=== PATIENT | female | born 2000 | race Caucasian/White ===

== ENCOUNTER 2019-03-25 14:21 | Emergency (ER) | payer MEDICAID ==
[~2019-03-25] VITALS: Ht 165.1 cm; Wt 71.7 kg
[2019-03-25 15:12] VITALS: BP 125/64
--- NOTE | 2019-03-25 15:29 | NUR ---
FIRST FEW ATTEMPTS TO TAKE B/P---READ AND TOOK NEXT AVAILABLE REINIERERDEYANIRA AND PLACED IV WITH NS BOLUS---MD NOTIFIED
[2019-03-25] MEDS ORDERED: NACL 0.9% 1,000 ML IV ONE ×2 (15:35→17:25)
--- NOTE | 2019-03-25 15:38 | NUR ---
C/O REPEATED N/V/D X TODAY ---FATIGUE, GENERALIZED WEAKNESS, BODYACHES VOMITUS GREEN BILE PER PATIENT. DIARRHEA IS CLEAR WATERY. DIARRHEA AND VOMIT 10+ THROUGHOUT THE NIGHT. ATE CHERISE'S LAST NIGHT AND FAMILY MEMBER STATED SAME SYMPTOMS. VSS. IV BOLUS INFUSING. C/O 04/12 GENERALIZED PAIN. GCS15. HX--DENIES RX---NONE
[2019-03-25] MEDS ORDERED: ONDANSETRON 4 MG/2 ML VIAL IVP ONE (15:50)
[2019-03-25] MEDS ORDERED: KETOROLAC 30 MG/ML VIAL IVP ONE ×2 (16:10→17:35)
[2019-03-25] MEDS ORDERED: DICYCLOMINE 20 MG/2 ML VIAL IM ONE (16:10)
[2019-03-25 16:14] LABS: EOSINOPHILS # (AUTO) 0.1 K/uL (0-0.4); LYMPHOCYTES # (AUTO) 0.5 K/uL (2.5-16.5)
[2019-03-25 16:19] LABS: BASOPHILS % (AUTO) 0.2 % (0.0-2.0); EOSINOPHILS % (AUTO) 0.8 % (0.0-4.0); HEMATOCRIT 45.9 % (36-48); HEMOGLOBIN 14.9 g/dL (12.0-16.0); MEAN CORPUSCULAR HEMOGLOBIN 27 pg (27-31); MEAN CORPUSCULAR HGB CONC 33 g/dL (33-37); MEAN CORPUSCULAR VOLUME 83.4 fL (80-94); NEUTROPHILS # (AUTO) 11.3 K/uL (1.8-7.7); PLATELET COUNT (AUTO) 280 K/uL (140-450)
[2019-03-25 16:50] LABS: ALBUMIN 4.1 g/dL (3.4-5.0); ANION GAP 18.7 (8-16); CARBON DIOXIDE 20.9 mmol/L (21-32); CREATININE 0.8 mg/dL (0.6-1.3); POTASSIUM 3.6 mmol/L (3.5-5.1); TOTAL BILIRUBIN 0.8 mg/dL (0.0-1.0)
[2019-03-25 17:03] LABS: APPEARANCE,URINE CLEAR (CLEAR); BILIRUBIN,URINE NEGATIVE (NEGATIVE); BLOOD, URINE 1+ (NEGATIVE); COLOR,URINE AMBER (YELLOW); LEUKOCYTE ESTERASE ,URINE NEGATIVE (NEGATIVE); NITRITE, URINE NEGATIVE (NEGATIVE); UGLUCOSE NEGATIVE (NEGATIVE)
--- NOTE | 2019-03-25 17:12 | NUR ---
PT SLEEPING IN BED, NAD. VSS.
[2019-03-25 17:13] LABS: WBC,URINE 0-5 /HPF (0-5)
[2019-03-25 18:13] VITALS: BP 125/74
--- NOTE | 2019-03-25 18:14 | NUR ---
Patient discharged with v/s stable. Written and verbal after care instructions given and explained. Patient alert, oriented and verbalized understanding of instructions. Ambulatory with steady gait. All questions addressed prior to discharge. ID band removed. Patient advised to follow up with PMD. Rx of SANTINO GREEN given. Patient educated on indication of medication including possible reaction and side effects. Opportunity to ask questions provided and answered.
== END 2019-03-25 18:14 | disposition home or self-care (01) ==
LOC: MED 14:21
DX: R19.7 Diarrhea, unspecified (principal); R11.2 Nausea with vomiting, unspecified
CPT/HCPCS: 36415; 80053; 81001; 83690; 85025; 96361; 96374; 96375; 96376; 99283; J0500; J1885; J2405

== ENCOUNTER 2020-07-02 15:05 | Emergency (ER) | payer MEDICAID ==
[~2020-07-02] VITALS: Ht 172.7 cm; Wt 77.1 kg
[2020-07-02 15:10] VITALS: BP 142/79
--- NOTE | 2020-07-02 15:21 | NUR ---
C/O Anxiety/LOSS OF TASTE AND SMELL X2-3 DAYS, PT HAVING NAUSEA AND DRY COUGH WELL. SLIGHT SOB. PMH: HTN NKDA
[2020-07-02 15:53] VITALS: BP 142/79
--- NOTE | 2020-07-02 15:53 | NUR ---
Patient discharged with v/s stable. Written and verbal after care instructions given and explained. Patient alert, oriented and verbalized understanding of instructions. Ambulatory with steady gait. All questions addressed prior to discharge. ID band removed. Patient advised to follow up with PMD. Rx of ZOFRAN, VISTARIL, PROMETHAZINE, TYLENOL given. Patient educated on indication of medication including possible reaction and side effects. Opportunity to ask questions provided and answered.
--- NOTE | 2020-07-04 15:55 | NUR ---
+ covid result received from lab. Copy given to Infection control
== END 2020-07-02 15:53 | disposition home or self-care (01) ==
LOC: MED 15:05
DX: R05 Cough (principal); Z20.828 Contact with and (suspected) exposure to other viral communicable diseases; F41.9 Anxiety disorder, unspecified
CPT/HCPCS: 99283; U0003

== ENCOUNTER 2020-12-08 00:40 | Emergency (ER) | payer MEDICAID ==
[~2020-12-08] VITALS: Ht 170.2 cm; Wt 78.9 kg
[2020-12-08 00:46] VITALS: BP 140/83
--- NOTE | 2020-12-08 00:51 | NUR ---
PT AMBULATED TO BED #10
--- NOTE | 2020-12-08 01:00 | NUR ---
19 y/o female presented to ED c/o upper quadrant abdominal pain since 1999 last night. Pt states she has had a few episodes of vomitting. Pt abd flat, soft and tender to upper quadrant upon palpation. Pt denies fever, chills, chest pain and sob. Pt states she just feels a lot of pressure to her abd. Pt thinks she may have food posioning. Pt placed in gown, resting in bed,locked and in lowest position, HOB elevated , side rail x 1. VSS. No acute distress noted. pmh: denies NKA
[2020-12-08] MEDS ORDERED: ONDANSETRON 4 MG ODT PO ONE (01:15)
[2020-12-08] MEDS ORDERED: DICYCLOMINE HCL LIQUID 20 MG, ALUMINUM HYD/MAG/SIMETHICONE 30 ML, LIDOCAINE VISCOUS 2% ... PO ONE ×3 (01:15)
[2020-12-08] MEDS ORDERED: ACETAMINOPHEN 325 MG TAB PO ONE (01:15)
[2020-12-08] MEDS ORDERED: LIDOCAINE VISCOUS 2% 20 ML UDC ONE (01:19)
[2020-12-08] MEDS ORDERED: ALUMINUM HYD/MAG/SIMETHICONE 30 ML UDC ONE (01:19)
[2020-12-08] MEDS ORDERED: DICYCLOMINE HCL LIQUID 10 MG/5 ML UDC ONE (01:19)
--- NOTE | 2020-12-08 01:22 | NUR ---
Pt vomitted after administration of zofran odt - ERMD made aware.
[2020-12-08] MEDS ORDERED: NACL 0.9% 1,000 ML IV SCH (01:25)
[2020-12-08] MEDS ORDERED: KETOROLAC 30 MG/ML VIAL IVP ONE (01:25)
[2020-12-08] MEDS ORDERED: ONDANSETRON 4 MG/2 ML VIAL IVP ONE (01:25)
[2020-12-08] MEDS ORDERED: LORazepam 2 MG/ML VIAL IVP ONE (01:25)
--- NOTE | 2020-12-08 01:25 | NUR ---
ERMD at bedside for medical evaluation.
--- NOTE | 2020-12-08 01:27 | NUR ---
20 g IV placed in right wrist - blood labs collected from IV site and handed to Mee from lab.
[2020-12-08 01:36] LABS: BASOPHILS # (AUTO) 0.1 K/uL (0.00-0.22); BASOPHILS % (AUTO) 0.7 % (0.0-2.0); EOSINOPHILS % (AUTO) 0.4 % (0.0-4.0); HEMATOCRIT 39.9 % (36-48); HEMOGLOBIN 13.6 g/dL (12.0-16.0); LYMPHOCYTES # (AUTO) 1.1 K/uL (2.5-16.5); LYMPHOCYTES % (AUTO) 10.5 % (20.5-51.1); MEAN CORPUSCULAR HEMOGLOBIN 28 pg (27-31); MEAN CORPUSCULAR HGB CONC 34 g/dL (33-37); MEAN CORPUSCULAR VOLUME 80.9 fL (80-94); MONOCYTES # (AUTO) 0.4 K/uL (0.8-1.0); MONOCYTES % (AUTO) 3.6 % (1.7-9.3); NEUTROPHILS # (AUTO) 8.6 K/uL (1.8-7.7); NEUTROPHILS % (AUTO) 84.8 % (42.2-75.2); PLATELET COUNT (AUTO) 375 K/uL (140-450); RED BLOOD CELL COUNT(AUTO) 4.94 MIL/uL (4.20-5.40); RED CELL DISTRIBUTION WIDTH 12.9 % (11.6-13.7); WHITE BLOOD COUNT (AUTO) 10.2 K/uL (4.8-10.8)
--- NOTE | 2020-12-08 01:55 | NUR ---
COVERING PRIMARY LUNCH RN FOR LUNCH RELIEF--- O2 SAT DROPPED TO 86%. PT PLACED ON 2L O2 VIA NASAL CANNULA. O2 SAT IMPROVED TO 98%. WILL CONTINUE TO MONITOR.
[2020-12-08 02:08] LABS: ANION GAP 25.5 (8-16); CARBON DIOXIDE 18.9 mmol/L (21-32); CREATININE 0.8 mg/dL (0.6-1.3); POTASSIUM 3.4 mmol/L (3.5-5.1)
[2020-12-08 02:14] LABS: ALBUMIN 4.2 g/dL (3.4-5.0); TOTAL BILIRUBIN 0.5 mg/dL (0.0-1.0)
--- NOTE | 2020-12-08 02:30 | NUR ---
Pt refused tylenol medication - pt states pain is much better at this time. SHOD made aware.
--- NOTE | 2020-12-08 02:39 | NUR ---
Pt resting in bed, locked and in lowest position, HOB elevated , side rail x1. Pt took of NC , oxygen level 100%. Pt states she is feeling better , no abd pain w/ minimal nausea.
--- NOTE | 2020-12-08 02:56 | NUR ---
ERMD AT BEDSIDE FOR FURTHER MEDICAL EVALUATION.
[2020-12-08] MEDS ORDERED: ONDA-24 SL (03:01)
[2020-12-08] MEDS ORDERED: FAMO-90 PO (03:01)
[2020-12-08] MEDS ORDERED: CEPH-588 PO (03:01)
--- NOTE | 2020-12-08 03:10 | NUR ---
IV removed, catheter intact and site benign. Applied folded 4x4 gauze and tape to stop bleeding.
--- NOTE | 2020-12-08 03:12 | NUR ---
Pt states she has called her ride to pick her up and that they should be here soon.
[2020-12-08 03:14] VITALS: BP 123/65
--- NOTE | 2020-12-08 03:14 | NUR ---
Patient discharged with v/s stable. Written and verbal after care instructions given and explained. Patient alert, oriented and verbalized understanding of instructions. Ambulatory with steady gait. All questions addressed prior to discharge. ID band removed. Patient advised to follow up with PMD. Rx of Zofran, Pepcid & Keflex given. Patient educated on indication of medication including possible reaction and side effects. Opportunity to ask questions provided and answered.
== END 2020-12-08 03:14 | disposition home or self-care (01) ==
LOC: MED 00:40
DX: K29.70 Gastritis, unspecified, without bleeding (principal)
CPT/HCPCS: 36415; 76705; 80053; 81002; 81025; 83690; 85025; 96361; 96374; 96375; 99284; J1885; J2060; J2405; J7030; Q0162

== ENCOUNTER 2021-05-26 17:52 | Emergency (ER) | payer MEDICAID ==
[~2021-05-26] VITALS: Ht 170.2 cm; Wt 78.0 kg
[~2021-05-26 17:52] MED LIST: CEPH-588 PO; FAMO-90 PO; ONDA-188 SL
[2021-05-26 18:09] VITALS: BP 131/70
--- NOTE | 2021-05-26 18:28 | NUR ---
URINE SPECIMEN IN [facility]
--- NOTE | 2021-05-26 21:18 | NUR ---
PT AMBULATED TO BED #1
--- NOTE | 2021-05-26 21:45 | NUR ---
PT C/O OF SORE THROAT AND CONGESTION X 3 DAYS. PT STATES SHE SAW A WHITE STONE IN THE BACK OF HER THROAT. PT DENIES N/V/D. MEDICAL HX: GASTRITIS NKA MEDICATIONS: NON
[2021-05-26 22:44] LABS: APPEARANCE,URINE SL CLOUDY (CLEAR); BILIRUBIN,URINE 1+ (NEGATIVE); BLOOD, URINE 1+ (NEGATIVE); COLOR,URINE DARK YELLOW (YELLOW); LEUKOCYTE ESTERASE ,URINE NEGATIVE (NEGATIVE); NITRITE, URINE NEGATIVE (NEGATIVE); PH,URINE 6.5 (5.0-9.0); UGLUCOSE TRACE (NEGATIVE)
[2021-05-26 22:48] LABS: WBC,URINE 0-5 /HPF (0-5)
[2021-05-26] MEDS ORDERED: CEPH-588 PO (22:57)
[2021-05-26 23:21] VITALS: BP 141/87
--- NOTE | 2021-05-26 23:29 | NUR ---
The patient's care was reviewed and supervised by Susan White RN.
== END 2021-05-26 23:20 | disposition home or self-care (01) ==
LOC: MED 17:52
DX: O23.41 Unspecified infection of urinary tract in pregnancy, first trimester (principal); Z20.822 Contact with and (suspected) exposure to COVID-19; O26.891 Other specified pregnancy related conditions, first trimester; J35.8 Other chronic diseases of tonsils and adenoids; Z3A.01 Less than 8 weeks gestation of pregnancy; Z79.899 Other long term (current) drug therapy
CPT/HCPCS: 81001; 81025; 87081; 87086; 87804; 99285

== ENCOUNTER 2021-07-13 03:10 | Emergency (ER) | payer MEDICAID ==
[~2021-07-13] VITALS: Ht 170.2 cm; Wt 79.4 kg
[2021-07-13 03:19] VITALS: BP 138/70
--- NOTE | 2021-07-13 03:19 | NUR ---
20 YO/O FEMALE BIB SELF FOR 8/10 PAIN IN RIGHT ABDOMEN RADIATING TO HER BACK. DESCRIBED PRESSURE X1 DAY. +N/V SINCE YESTERDAY NIGHT. PT STATES HER BACK WAS "LOCKING UP." 15 WEEKS ; LMP 03/29. SARAI 01/04. . SLIGHTLY DIZZY. DENIES DIARRHEA. UNLABORED BREATHING, A/OX4, REGULAR HEART RATE. HX: GASTRITIS, RECENT UTI NKA
--- NOTE | 2021-07-13 03:41 | NUR ---
Dr. Huang examining patient.
[2021-07-13] MEDS ORDERED: ACETAMINOPHEN EXTRA STRENGTH 500 MG TAB PO ONE (03:50)
[2021-07-13] MEDS ORDERED: NACL 0.9% 1,000 ML IV SCH (03:50)
[2021-07-13] MEDS ORDERED: ONDANSETRON 4 MG/2 ML VIAL IVP ONE (03:50)
--- NOTE | 2021-07-13 04:17 | NUR ---
PT TAKEN TO ULTRASOUND
[2021-07-13 04:23] LABS: BASOPHILS # (AUTO) 0.1 K/uL (0.00-0.22); BASOPHILS % (AUTO) 0.6 % (0.0-2.0); EOSINOPHILS # (AUTO) 0.1 K/uL (0-0.4); EOSINOPHILS % (AUTO) 0.7 % (0.0-4.0); HEMATOCRIT 35.8 % (36-48); HEMOGLOBIN 12.3 g/dL (12.0-16.0); LYMPHOCYTES # (AUTO) 0.5 K/uL (2.5-16.5); LYMPHOCYTES % (AUTO) 5.8 % (20.5-51.1); MEAN CORPUSCULAR HEMOGLOBIN 28 pg (27-31); MEAN CORPUSCULAR HGB CONC 34 g/dL (33-37); MEAN CORPUSCULAR VOLUME 80.7 fL (80-94); MONOCYTES # (AUTO) 0.7 K/uL (0.8-1.0); MONOCYTES % (AUTO) 7.7 % (1.7-9.3); NEUTROPHILS # (AUTO) 7.8 K/uL (1.8-7.7); NEUTROPHILS % (AUTO) 85.2 % (42.2-75.2); PLATELET COUNT (AUTO) 220 K/uL (140-450); RED BLOOD CELL COUNT(AUTO) 4.44 MIL/uL (4.20-5.40); RED CELL DISTRIBUTION WIDTH 13.4 % (11.6-13.7); WHITE BLOOD COUNT (AUTO) 9.1 K/uL (4.8-10.8)
[2021-07-13 04:36] LABS: ALBUMIN 3.2 g/dL (3.4-5.0); ANION GAP 15.6 (8-16); CARBON DIOXIDE 22.4 mmol/L (21-32); CREATININE 0.5 mg/dL (0.6-1.3); TOTAL BILIRUBIN 0.4 mg/dL (0.0-1.0)
--- NOTE | 2021-07-13 04:42 | NUR ---
PT RETURN FROM ULTRASOUND
--- NOTE | 2021-07-13 04:53 | NUR ---
PT TAKEN TO ULTRASOUND
--- NOTE | 2021-07-13 04:56 | NUR ---
PT RETURN FROM ULTRASOUND
[2021-07-13 05:52] LABS: APPEARANCE,URINE CLEAR (CLEAR); BILIRUBIN,URINE NEGATIVE (NEGATIVE); BLOOD, URINE 2+ (NEGATIVE); COLOR,URINE YELLOW (YELLOW); LEUKOCYTE ESTERASE ,URINE NEGATIVE (NEGATIVE); NITRITE, URINE NEGATIVE (NEGATIVE); PH,URINE 7.5 (5.0-9.0); UGLUCOSE NEGATIVE (NEGATIVE)
[2021-07-13 06:34] LABS: RBC,URINE 0-5 /HPF (0-5); WBC,URINE 0-5 /HPF (0-5)
[2021-07-13] MEDS ORDERED: cephALEXin 500 MG CAP PO ONE (06:40)
[2021-07-13] MEDS ORDERED: CEPH-588 PO (06:41)
--- NOTE | 2021-07-13 06:49 | NUR ---
IV removed, catheter intact and site benign. Applied folded 4x4 gauze and tape to stop bleeding.
[2021-07-13 06:53] VITALS: BP 138/70
== END 2021-07-13 06:50 | disposition home or self-care (01) ==
LOC: MED 03:10
DX: O23.42 Unspecified infection of urinary tract in pregnancy, second trimester (principal); Z3A.15 15 weeks gestation of pregnancy; Z79.899 Other long term (current) drug therapy
CPT/HCPCS: 36415; 76705; 76805; 80053; 81001; 81025; 83690; 84703; 85025; 87086; 96361; 96374; 99284; J2405; J7030; Q0092

== ENCOUNTER 2022-05-29 17:35 | Emergency (ER) | payer MEDICAID ==
[~2022-05-29] VITALS: Ht 170.2 cm; Wt 74.8 kg
[2022-05-29 18:09] VITALS: BP 129/89
--- NOTE | 2022-05-29 18:11 | NUR ---
COVID AND FLU SWAB COLLECTED
[2022-05-29] MEDS ORDERED: ACET-10509 PO (19:54)
[2022-05-29 20:11] VITALS: BP 120/80
== END 2022-05-29 20:11 | disposition home or self-care (01) ==
LOC: MED 17:35
DX: J10.1 Influenza due to other identified influenza virus with other respiratory manifestations (principal); Z20.822 Contact with and (suspected) exposure to COVID-19; R51.9 Headache, unspecified; M54.2 Cervicalgia; R68.83 Chills (without fever); Z79.899 Other long term (current) drug therapy
CPT/HCPCS: 99283

== ENCOUNTER 2023-06-10 16:28 | Emergency (ER) | payer MEDICAID ==
[~2023-06-10] VITALS: Ht 170.2 cm; Wt 79.4 kg
[~2023-06-10 16:28] MED LIST changes: +ACET-10509 PO
[2023-06-10 18:09] VITALS: BP 120/81; PULSE 80; RESP 20; TEMP 98.2; O2SAT 100
[2023-06-10 18:48] LABS: APPEARANCE,URINE CLEAR (CLEAR); BILIRUBIN,URINE NEGATIVE (NEGATIVE); BLOOD, URINE TRACE-I (NEGATIVE); COLOR,URINE YELLOW (YELLOW); LEUKOCYTE ESTERASE ,URINE NEGATIVE (NEGATIVE); NITRITE, URINE NEGATIVE (NEGATIVE); PROTEIN,URINE TRACE (NEGATIVE); UGLUCOSE NEGATIVE (NEGATIVE); UROBILINOGEN,URINE 0.2 EU/dL (0.2 - 1)
[2023-06-10 18:59] LABS: BACTERIA,URINE >30 (MANY) /HPF (None Seen); MUCUS,URINE 1+ /LPF (None Seen); RBC,URINE 11-20 (MOD) /HPF (0-5)
[2023-06-10 19:00] VITALS: BP 120/81; PULSE 80; RESP 20; TEMP 98.2; O2SAT 100
[2023-06-10] MEDS ORDERED: FAMOTIDINE 20 MG TAB PO ONE (19:10)
[2023-06-10] MEDS ORDERED: ONDANSETRON 4 MG ODT PO ONE (19:10)
[2023-06-10] MEDS ORDERED: DICYCLOMINE HCL LIQUID 20 MG, ALUMINUM HYD/MAG/SIMETHICONE 30 ML, LIDOCAINE VISCOUS 2% ... PO ONE ×3 (19:10)
[2023-06-10 19:23] LABS: BASOPHILS # (AUTO) 0.1 K/uL (0.00-0.22); BASOPHILS % (AUTO) 0.7 % (0.0-2.0); EOSINOPHILS # (AUTO) 0.1 K/uL (0-0.4); EOSINOPHILS % (AUTO) 1.3 % (0.0-4.0); HEMATOCRIT 37.8 % (36-48); HEMOGLOBIN 12.6 g/dL (12.0-16.0); LYMPHOCYTES # (AUTO) 1.4 K/uL (2.5-16.5); LYMPHOCYTES % (AUTO) 15.5 % (20.5-51.1); MEAN CORPUSCULAR HEMOGLOBIN 27 pg (27-31); MEAN CORPUSCULAR HGB CONC 33 g/dL (33-37); MEAN CORPUSCULAR VOLUME 80.7 fL (80-94); MONOCYTES # (AUTO) 0.5 K/uL (0.8-1.0); MONOCYTES % (AUTO) 5.2 % (1.7-9.3); NEUTROPHILS # (AUTO) 6.9 K/uL (1.8-7.7); NEUTROPHILS % (AUTO) 77.3 % (42.2-75.2); PLATELET COUNT (AUTO) 261 K/uL (140-450); RED BLOOD CELL COUNT(AUTO) 4.69 MIL/uL (4.20-5.40); RED CELL DISTRIBUTION WIDTH 13.1 % (11.6-13.7)
[2023-06-10] MEDS ORDERED: DICYCLOMINE HCL LIQUID 10 MG/5 ML UDC ONE (19:30)
[2023-06-10] MEDS ORDERED: ALUMINUM HYD/MAG/SIMETHICONE 30 ML UDC ONE (19:30)
[2023-06-10 19:59] LABS: ALBUMIN 3.6 g/dL (3.4-5.0); ANION GAP 12.1 (8-16); CALCIUM 8.3 mg/dL (8.5-10.1); CARBON DIOXIDE 24.2 mmol/L (21-32); CREATININE 0.5 mg/dL (0.6-1.3); POTASSIUM 4.3 mmol/L (3.5-5.1); TOTAL BILIRUBIN 0.3 mg/dL (0.0-1.0)
[2023-06-10] MEDS ORDERED: ONDA-188 PO (20:21)
[2023-06-10] MEDS ORDERED: CEPH500C16 PO (20:21)
[2023-06-10] MEDS ORDERED: OMEP20EC11 PO (20:21)
[2023-06-10] MEDS ORDERED: MAG355OR2 PO (20:21)
== END 2023-06-10 20:34 | disposition home or self-care (01) ==
LOC: MED 16:28
DX: N39.0 Urinary tract infection, site not specified (principal); K29.70 Gastritis, unspecified, without bleeding; Z79.899 Other long term (current) drug therapy
CPT/HCPCS: 36415; 80053; 81001; 81025; 83690; 85025; 87086; 99284; Q0162